=== PATIENT | female | born 1990 | race Two or more races ===

== ENCOUNTER 2019-05-13 19:43 | Emergency (ER) | payer BC ==
[~2019-05-13] VITALS: Ht 177.8 cm; Wt 127.0 kg
[2019-05-13 20:53] LABS: Urine Bacteria FEW /hpf (None Seen); Urine Blood Negative /uL (Negative); Urine Mucus FEW (None Seen); Urine Specific Gravity 1.026 (1.001-1.035); Urine WBC 39 /hpf (0 - 5)
[2019-05-14 00:03] LABS: Eosinophils # (auto) 0.2 uL; Hemoglobin 12.2 g/dL (12.2-16.2); Nucleated Red Blood Cells % 0.1 %; Platelet Count (auto) 294 10^3/uL (140-450)
[2019-05-14 00:04] LABS: Basophils # (auto) 0.2 uL; Basophils % (auto) 1.3 % (0.0-2.0); Eosinophils % (auto) 1.7 % (0.0-7.0); Hematocrit 37.4 % (36.0-46.0); Lymphocytes # (auto) 3.1 uL; Lymphocytes % (auto) 26.8 % (10.0-50.0); Mean Corpuscular Hemoglobin 21.8 pg (28.0-32.0); Mean Corpuscular Hgb Conc. 32.6 g/dL (32.0-36.0); Mean Corpuscular Volume 66.9 fL (80.0-100.0); Monocytes % (auto) 8.8 % (0.0-12.0); Neutrophils # (auto) 7.2 uL; Neutrophils % (auto) 61.4 % (37.0-80.0); Red Blood Cells 5.58 10^6/uL (4.0-5.20); Red Cell Distribution Width 19.2 % (11.8-14.3); White Blood Cell 11.7 10^3/uL (4.4-10.8)
[2019-05-14 00:20] LABS: Amylase 55 U/L (25-115); Anion Gap 7 (5-15); BUN/Creatinine Ratio 15.8; Blood Urea Nitrogen 12 mg/dL (7-18); Calcium 8.8 mg/dL (8.5-10.1); Carbon Dioxide 25 mmol/L (21-32); Chloride 106 mmol/L (98-107); GFR African American 115 mL/min; GFR Non-African American 95 mL/min; Glucose 89 mg/dL (74-106); Lipase 115 U/L (73-393); Magnesium 2.5 mg/dL (1.6-2.6); Potassium 3.7 mmol/L (3.5-5.1); Sodium 138 mmol/L (136-145)
[2019-05-14 00:21] LABS: INR 1.01 (0.9-1.15); Partial Thromboplastin Time 32.4 sec (23.64-32.05)
[2019-05-14 00:26] LABS: Alanine Aminotransferase 31 U/L (13-56); Alkaline Phosphatase 106 U/L (45-117); Aspartate Aminotransferase 22 U/L (15-37); Bilirubin, Total 0.3 mg/dL (0.2-1.0); Total Protein 8.4 g/dL (6.4-8.2)
[2019-05-14] MEDS ORDERED: IOHEXOL 300 MG/ML 100ML BOTTLE IJ ONE (03:06)
[2019-05-14 04:13] VITALS: BP 125/70
== END 2019-05-14 05:37 | disposition home or self-care (01) ==
LOC: ER 19:43
DX: N39.0 Urinary tract infection, site not specified (principal); K76.0 Fatty (change of) liver, not elsewhere classified
CPT/HCPCS: 36415; 74177; 80053; 81001; 81025; 82150; 83690; 83735; 84484; 85025; 85610; 85730; 93005; 99284; Q9967

== ENCOUNTER 2020-12-18 20:02 | Emergency (ER) | payer BC ==
[~2020-12-18] VITALS: Ht 175.3 cm; Wt 119.7 kg
[2020-12-18 20:40] VITALS: BP 130/75
[2020-12-18] MEDS ORDERED: SODIUM CHLORIDE 0.9% 1,000 ML IV ONE (21:00)
[2020-12-18 22:02] LABS: Basophils # (auto) 0.1 10 ^3/uL (0-0.2); Basophils % (auto) 0.4 % (0.0-2.0); Eosinophils # (auto) 0.1 10 ^3/uL (0-0.8); Eosinophils % (auto) 0.6 % (0.0-7.0); Hematocrit 36.9 % (36.0-46.0); Lymphocytes # (auto) 2.1 10 ^3/uL (0.4-5.4); Lymphocytes % (auto) 15.8 % (10.0-50.0); Mean Corpuscular Hgb Conc. 32.6 g/dL (32.0-36.0); Mean Corpuscular Volume 76.5 fL (80.0-100.0); Monocytes # (auto) 0.9 10 ^3/uL (0-1.3); Monocytes % (auto) 6.8 % (0.0-12.0); Neutrophils # (auto) 10.1 10 ^3/uL (1.6-8.6); Neutrophils % (auto) 76.4 % (37.0-80.0); Platelet Count (auto) 261 10^3/uL (140-450); Red Blood Cells 4.82 10^6/uL (4.0-5.20); White Blood Cell 13.2 10^3/uL (4.4-10.8)
[2020-12-18 22:07] LABS: Alcohol, Urine < 3.0 mg/dL (0-10); Amphetamine Screen, Urine NEGATIVE (NEGATIVE); Barbiturate Scree,Urine NEGATIVE (NEGATIVE); Benzodiazephine Screen, Urine NEGATIVE (NEGATIVE); Cannabinoid Screen, Urine POSITIVE (NEGATIVE); Cocaine Screen, Urine NEGATIVE (NEGATIVE); Opiate Scree,Urine NEGATIVE (NEGATIVE); Phencyclidine Screen, Urine NEGATIVE (NEGATIVE)
[2020-12-18 22:28] LABS: Anion Gap 8 (5-15); Blood Urea Nitrogen 10 mg/dL (7-18); Carbon Dioxide 24 mmol/L (21-32); Chloride 105 mmol/L (98-107); Glucose 117 mg/dL (74-106); Potassium 3.9 mmol/L (3.5-5.1); Sodium 137 mmol/L (136-145)
[2020-12-18 22:31] LABS: Blood Alcohol < 3.0 mg/dL (0-5); Calcium 8.5 mg/dL (8.5-10.1); GFR African American 102 mL/min; GFR Non-African American 85 mL/min
[2020-12-18 23:21] LABS: Urine Amorphous Crystal MOD /hpf (None Seen); Urine Bacteria MOD /hpf (None Seen); Urine Blood Negative /uL (Negative); Urine Mucus FEW (None Seen); Urine Specific Gravity 1.032 (1.001-1.035); Urine WBC 13 /hpf (0 - 5)
== END 2020-12-18 22:37 | disposition home or self-care (01) ==
LOC: EDBD 20:02 → ER 20:05
DX: F41.9 Anxiety disorder, unspecified (principal)
CPT/HCPCS: 36415; 80048; 80307; 80320; 81001; 85025; 96360; 96361; 99283; J7030

== ENCOUNTER 2022-01-20 23:32 | Emergency (ER) | payer BC ==
[~2022-01-20] VITALS: Ht 177.8 cm; Wt 128.4 kg
[2022-01-21] MEDS ORDERED: hydrOXYzine HCL 10 MG TAB PO ONE (00:15)
[2022-01-21 01:05] VITALS: BP 120/72
== END 2022-01-21 01:05 | disposition home or self-care (01) ==
LOC: ER 23:32
DX: F41.9 Anxiety disorder, unspecified (principal); R20.2 Paresthesia of skin